=== PATIENT | female | born 1945 | race Caucasian/White ===

== ENCOUNTER → 2017-06-15 | Outpatient (CLI) | payer MEDICARE, OTHER ==
[~2017-06-15] MED LIST: FLUT16SP2 INH
== END | disposition home or self-care (01) ==
LOC: CFH 10:30
PROVIDERS: ATTEND Family Medicine
DX: Z12.31 Encounter for screening mammogram for malignant neoplasm of breast (principal)
CPT/HCPCS: G0202

== ENCOUNTER → 2017-06-24 | Outpatient (CLI) | payer MEDICARE, OTHER | END | disposition home or self-care (01) | LOC: CFH 10:42 | PROVIDERS: ATTEND Family Medicine | DX: Z13.820 Encounter for screening for osteoporosis (principal); M81.0 Age-related osteoporosis without current pathological fracture; M85.88 Other specified disorders of bone density and structure, other site | CPT/HCPCS: 77080 ==

== ENCOUNTER 2019-05-30 12:38 | Emergency (ER) | payer MEDICARE, OTHER ==
[~2019-05-30] VITALS: Ht 165.1 cm; Wt 86.0 kg
--- NOTE | 2019-05-30 13:05 | NUR ---
FIRST CONTACT WITH PT: Pt resting on vale. DEE. Pt states, "I am not digesting my food well. I have been burping alot. It feels like there is a lot of trapped gas. I have a lot of food allergies. I cook all my own food. I havn't changed my diet. I have rheumatoid arthritis so I eat alot of greens for it." Pt denies n/v/d, cp, sob, trauma, or syncope. CMS intact. Bedrail up for safety measures. Call light within reach. NIBP cuff and pulse ox connected to pt. No other needs requested.
[2019-05-30] MEDS ORDERED: supplements (13:09)
[2019-05-30 13:29] LABS: BASOPHILS # (AUTO) 0.02 x10^3/uL (0-0.1); BASOPHILS % (AUTO) 0 % (0-1); EOSINOPHILS % (AUTO) 1 % (1-7); LYMPHOCYTES # (AUTO) 0.98 x10^3/uL (1-3.4); LYMPHOCYTES % (AUTO) 10 % (22-44); MD NO; MEAN CORPUSCULAR HEMOGLOBIN 32.1 pg (27.0-34.8); MEAN CORPUSCULAR VOLUME 97.4 fL (80-100); MEAN PLATELET VOLUME 6.9 fL (7.4-10.4); MONOCYTES # (AUTO) 0.66 x10^3/uL (0.2-0.8); MONOCYTES % (AUTO) 7 % (2-9); NEUTROPHILS # (AUTO) 7.77 x10^3/uL (1.8-6.8); NEUTROPHILS % (AUTO) 82 % (42-75); PLATELET COUNT 279 x10^3/uL (130-400); RED BLOOD COUNT 4.38 x10^6/uL (3.82-5.3); RED CELL DISTRIBUTION WIDTH 12.9 % (9.6-15.2)
[2019-05-30 13:42] LABS: ALANINE AMINOTRANSFERASE 37 U/L (12-78); ALBUMIN 3.3 g/dL (3.4-5.0); ANION GAP 6 mmol/L (5-15); CALCIUM 9.1 mg/dL (8.5-10.1); CHLORIDE 111 mmol/L (98-107); CREATININE 0.71 mg/dL (0.55-1.02)
[2019-05-30 13:44] LABS: ALKALINE PHOSPHATASE 84 U/L (45-117); BILIRUBIN,TOTAL 1.3 mg/dL (0.2-1.0); TOTAL PROTEIN 7.3 g/dL (6.4-8.2)
--- NOTE | 2019-05-30 14:22 | NUR ---
BREAK RN-PT AMBULATED TO BR WITH STEADY GAIT. URINE SAMPLE COLLECTED AND SENT TO LAB. NO OTHER NEEDS AT THIS TIME
[2019-05-30 14:49] VITALS: BP 32/65
[2019-05-30 15:12] LABS: CULTURE INDICATED? YES; MICROSCOPIC INDICATED
--- NOTE | 2019-05-30 16:12 | NUR ---
Patient given discharge instructions and they have confirmed that they understand the instructions. Patient ambulatory with steady gait. Pt refusing vital signs taken at discharge. Pt left with all personal belongings and d/c paperwork. Pt encouraged to return to ED if symptoms worsen or change.
== END 2019-05-30 16:14 | disposition home or self-care (01) ==
LOC: ED 16:00
DX: R10.13 Epigastric pain (principal); R10.32 Left lower quadrant pain; I10 Essential (primary) hypertension
CPT/HCPCS: 36415; 74021; 80053; 81001; 83690; 85025; 87086; 99284

== ENCOUNTER 2019-07-07 08:09 | Outpatient (CLI) | payer MEDICARE, OTHER | END 2019-07-07 23:59 | disposition home or self-care (01) | LOC: CFH 08:09 | PROVIDERS: ATTEND Family Medicine | DX: Z12.31 Encounter for screening mammogram for malignant neoplasm of breast (principal); M81.0 Age-related osteoporosis without current pathological fracture; N95.1 Menopausal and female climacteric states | CPT/HCPCS: 77080; 77067 ==

== ENCOUNTER 2020-09-26 13:38 | Emergency (ER) | payer MEDICARE, OTHER ==
[~2020-09-26] VITALS: Ht 165.1 cm; Wt 86.4 kg
[~2020-09-26 13:38] MED LIST changes: +supplements
[2020-09-26 15:11] LABS: BASOPHILS % (AUTO) 0 % (0-1); EOSINOPHILS % (AUTO) 0 % (1-7); LYMPHOCYTES % (AUTO) 16 % (22-44); MEAN CORPUSCULAR HEMOGLOBIN 31.5 pg (27.0-34.8); MEAN CORPUSCULAR HGB CONC 33.2 g/dL (32.4-35.8); MEAN PLATELET VOLUME 7.2 fL (7.4-10.4); MONOCYTES % (AUTO) 10 % (2-9); NEUTROPHILS % (AUTO) 74 % (42-75); PLATELET COUNT 207 x10^3/uL (130-400); RED BLOOD COUNT 4.22 x10^6/uL (3.82-5.3); RED CELL DISTRIBUTION WIDTH 13.8 % (9.6-15.2)
[2020-09-26 15:15] LABS: MD NO
[2020-09-26 15:21] LABS: ALANINE AMINOTRANSFERASE 36 U/L (12-78); ALBUMIN 3.2 g/dL (3.4-5.0); ANION GAP 6 mmol/L (5-15); CALCIUM 8.9 mg/dL (8.5-10.1); CHLORIDE 104 mmol/L (98-107); CREATININE 1.54 mg/dL (0.55-1.02)
[2020-09-26] MEDS ORDERED: KETOROLAC 30 MG/1 ML ONE (15:23)
[2020-09-26] MEDS ORDERED: CEFTRIAXONE PMX 1GM/50ML 50 ML ONE (15:23)
[2020-09-26 15:27] LABS: ALKALINE PHOSPHATASE 72 U/L (45-117); BILIRUBIN,TOTAL 0.6 mg/dL (0.2-1.0); TOTAL PROTEIN 7.4 g/dL (6.4-8.2)
[2020-09-26] MEDS ORDERED: KETOROLAC 30 MG/1 ML IVPush ONE (15:30)
[2020-09-26] MEDS ORDERED: SODIUM CHLORIDE FLUSH 10ML SYR IVF ONE (15:30)
[2020-09-26] MEDS ORDERED: CEFTRIAXONE PMX 1GM/50ML 50 ML IVPB ONE (15:30)
[2020-09-26] MEDS ORDERED: AZITHROMYCIN 500 MG in SODIUM CHLORIDE 0.9% 250 ML IV ONE (15:30)
[2020-09-26] MEDS ORDERED: vit e PO (15:33)
[2020-09-26] MEDS ORDERED: allergy pill PO (15:33)
[2020-09-26] MEDS ORDERED: OMEP40CA42 PO (15:33)
--- NOTE | 2020-09-26 15:39 | NUR ---
IV PLACED/BC X 1 DRAWN. VERBAL ORDER PLACED FOR BC X 2. PT MEDICATED FOR "ALL OVER" PAIN PER ERP ORDER. HOLDING ON ANTIBIOTICS UNTIL 2ND BC DRAWN. CALL TO LAB TO NOTIFY. WARM BLANKET PROVIDED. CALL LIGHT WITHIN REACH. VSS/UPDATED IN COMPUTER.
--- NOTE | 2020-09-26 16:58 | NUR ---
PT OFFERED ADMIT OR GO HOME, PT STATES SHE "NEEDS TO GO HOME". PT PROVIDED MEAL TRAY AND READY FOR DISCHARGE.
[2020-09-26 17:11] VITALS: BP 122/62
== END 2020-09-26 17:15 | disposition home or self-care (01) ==
LOC: ED 14:41
DX: U07.1 COVID-19 (principal); J15.9 Unspecified bacterial pneumonia; R09.02 Hypoxemia; R94.31 Abnormal electrocardiogram [ECG] [EKG]; I10 Essential (primary) hypertension
CPT/HCPCS: 36415; 71045; 80053; 83605; 83615; 85025; 86140; 87040; 87635; 93005; 96365; 96375; 99285; J0696; J1885

== ENCOUNTER 2020-09-28 12:20 | Inpatient (IN) | payer MEDICARE, OTHER ==
[~2020-09-28] VITALS: Ht 165.1 cm; Wt 91.6 kg
[~2020-09-28 12:20] MED LIST changes: +OMEP40CA42 PO; +allergy pill PO; +vit e PO
[2020-09-28] MEDS ORDERED: SODIUM CHLORIDE 0.9% 1,000ML IVBOLUS ONE (13:00)
[2020-09-28] MEDS ORDERED: SODIUM CHLORIDE FLUSH 10ML SYR IVF ONE (13:00)
[2020-09-28] MEDS: PLEASE ENTER HEIGHT AND WEIGHT MC SCH (13:00)
--- NOTE | 2020-09-28 13:05 | NUR ---
iv access obtained. first set of blood cultures drawn off iv start.
[2020-09-28 13:15] LABS: ALANINE AMINOTRANSFERASE 32 U/L (12-78); ALBUMIN 2.9 g/dL (3.4-5.0); ANION GAP 8 mmol/L (5-15); CALCIUM 8.7 mg/dL (8.5-10.1); CHLORIDE 101 mmol/L (98-107); CREATININE 1.04 mg/dL (0.55-1.02)
[2020-09-28 13:17] LABS: ALKALINE PHOSPHATASE 64 U/L (45-117); BILIRUBIN,TOTAL 0.5 mg/dL (0.2-1.0); TOTAL PROTEIN 7.5 g/dL (6.4-8.2)
[2020-09-28 13:20] LABS: BASOPHILS % (AUTO) 0 % (0-1); EOSINOPHILS % (AUTO) 0 % (1-7); LYMPHOCYTES % (AUTO) 17 % (22-44); MEAN PLATELET VOLUME 7.6 fL (7.4-10.4); MONOCYTES % (AUTO) 12 % (2-9); NEUTROPHILS % (AUTO) 71 % (42-75); PLATELET COUNT 222 x10^3/uL (130-400); RED BLOOD COUNT 4.09 x10^6/uL (3.82-5.3); RED CELL DISTRIBUTION WIDTH 13.7 % (9.6-15.2)
[2020-09-28] MEDS ORDERED: CEFTRIAXONE PMX 1GM/50ML 50 ML ONE (13:20)
[2020-09-28 13:22] LABS: MD NO
[2020-09-28] MEDS ORDERED: CEFTRIAXONE PMX 1GM/50ML 50 ML IVPB ONE (13:30)
--- NOTE | 2020-09-28 14:23 | NUR ---
[facility] [phone]
--- NOTE | 2020-09-28 15:58 | NUR ---
Pt got up to use bedside commode. Took oxygen off. Pt o2 sat dropped to 83% with ambulation. Placed back on 2L 95%. notified.
[2020-09-28] MEDS ORDERED: OMNIPAQUE 350 MG/ML, 100ML BOTTLE ONE (16:50)
[2020-09-28] MEDS ORDERED: DOCUSATE 100 MG CAPSULE PO PRN (17:00)
[2020-09-28] MEDS ORDERED: ONDANSETRON ODT 4 MG PO PRN (17:00)
[2020-09-28] MEDS ORDERED: ONDANSETRON 2MG/ML, 2ML IVPush PRN (17:00)
[2020-09-28] MEDS ORDERED: ACETAMINOPHEN 325 MG TABLET PO PRN (17:00)
[2020-09-28] MEDS: LACTATED RINGERS 1,000 ML IV SCH (17:00)
[2020-09-28] MEDS: DOXYCYCLINE 100 MG in DEXTROSE 5% 250 ML IV SCH (17:30)
[2020-09-28 17:54] LABS: HCT (SEDRATE) 38.5 % (34.6-47.8)
[2020-09-28] MEDS ORDERED: REMDESIVIR 200 MG in SODIUM CHLORIDE 0.9% 250 ML IVPB ONE (18:30)
--- NOTE | 2020-09-28 18:55 | NUR ---
Report received from ARNOL Charles. This RN to assume care.
[2020-09-28] MEDS ORDERED: ASPIRIN 325 MG TABLET ONE (19:49)
[2020-09-28] MEDS ORDERED: FAMOTIDINE 20 MG TABLET ONE (19:50)
[2020-09-28] MEDS ORDERED: ASPIRIN 325 MG TABLET PO PRN (20:30)
[2020-09-28] MEDS: FAMOTIDINE 20 MG TABLET PO SCH (21:00)
--- NOTE | 2020-09-28 22:00 | NUR ---
Assisted patient to bedside commode.
--- NOTE | 2020-09-28 22:28 | NUR ---
Report given to ARNOL King. Patient to be transferred to room 495.
[2020-09-29 00:01] VITALS: BP 119/71
[2020-09-29] MEDS: ASCORBIC ACID 500 MG TABLET PO SCH ×3 (00:53→17:29)
[2020-09-29] MEDS: LACTATED RINGERS 1,000 ML IV SCH ×5 (00:53→21:16)
[2020-09-29] MEDS: PLEASE ENTER HEIGHT AND WEIGHT MC SCH ×2 (00:54→05:00)
[2020-09-29] MEDS: DOXYCYCLINE 100 MG in DEXTROSE 5% 250 ML IV SCH ×2 (06:08→17:29)
[2020-09-29 07:20] LABS: BASOPHILS % (AUTO) 0 % (0-1); EOSINOPHILS % (AUTO) 0 % (1-7); LYMPHOCYTES % (AUTO) 15 % (22-44); MEAN CORPUSCULAR HEMOGLOBIN 31.1 pg (27.0-34.8); MEAN CORPUSCULAR HGB CONC 33.1 g/dL (32.4-35.8); MEAN PLATELET VOLUME 7.5 fL (7.4-10.4); MONOCYTES % (AUTO) 8 % (2-9); NEUTROPHILS % (AUTO) 77 % (42-75); PLATELET COUNT 196 x10^3/uL (130-400); RED BLOOD COUNT 3.35 x10^6/uL (3.82-5.3); RED CELL DISTRIBUTION WIDTH 13.7 % (9.6-15.2)
[2020-09-29 07:25] LABS: ALBUMIN 2.1 g/dL (3.4-5.0); ANION GAP 5 mmol/L (5-15); CALCIUM 7.7 mg/dL (8.5-10.1); CHLORIDE 105 mmol/L (98-107)
[2020-09-29 07:29] LABS: MD NO
[2020-09-29 07:31] LABS: ALANINE AMINOTRANSFERASE 29 U/L (12-78); ALKALINE PHOSPHATASE 53 U/L (45-117); BILIRUBIN,TOTAL 0.3 mg/dL (0.2-1.0); CREATININE 0.76 mg/dL (0.55-1.02); TOTAL PROTEIN 5.9 g/dL (6.4-8.2)
[2020-09-29] MEDS: THIAMINE 100MG TABLET PO SCH (08:34)
[2020-09-29] MEDS: ZINC SULFATE 220 MG CAPSULE PO SCH (08:34)
[2020-09-29] MEDS: CHOLECALCIFEROL 5,000u TAB PO SCH (08:35)
[2020-09-29] MEDS: FAMOTIDINE 20 MG TABLET PO SCH ×2 (08:35→21:16)
[2020-09-29] MEDS: DEXAMETHASONE 4 MG/ML, 1ML IVPush SCH (08:36)
[2020-09-29] MEDS: OMEPRAZOLE 20 MG CAPSULE.DR PO SCH (10:37)
[2020-09-29 20:26] VITALS: BP 113/67
[2020-09-29] MEDS: REMDESIVIR 100 MG in SODIUM CHLORIDE 0.9% 250 ML IVPB SCH (21:17)
[2020-09-30 01:07] VITALS: BP 118/69
[2020-09-30] MEDS: OMEPRAZOLE 20 MG CAPSULE.DR PO SCH (05:25)
[2020-09-30] MEDS: DOXYCYCLINE 100 MG in DEXTROSE 5% 250 ML IV SCH ×2 (05:25→17:36)
[2020-09-30] MEDS: LACTATED RINGERS 1,000 ML IV SCH (05:26)
[2020-09-30 06:18] VITALS: BP 133/82
[2020-09-30 06:41] LABS: ALANINE AMINOTRANSFERASE 34 U/L (12-78); ALBUMIN 2.1 g/dL (3.4-5.0); ANION GAP 6 mmol/L (5-15); CALCIUM 8.2 mg/dL (8.5-10.1); CHLORIDE 112 mmol/L (98-107); CREATININE 0.66 mg/dL (0.55-1.02)
[2020-09-30 06:43] LABS: ALKALINE PHOSPHATASE 52 U/L (45-117); BILIRUBIN,TOTAL 0.6 mg/dL (0.2-1.0)
[2020-09-30] MEDS: ENOXAPARIN 40 MG/0.4 ML SQ SCH (08:00)
[2020-09-30] MEDS: CHOLECALCIFEROL 5,000u TAB PO SCH (09:00)
[2020-09-30] MEDS: DEXAMETHASONE 4 MG/ML, 1ML IVPush SCH (09:16)
[2020-09-30] MEDS: ASCORBIC ACID 500 MG TABLET PO SCH ×2 (09:16→17:36)
[2020-09-30] MEDS: ZINC SULFATE 220 MG CAPSULE PO SCH (09:17)
[2020-09-30] MEDS: THIAMINE 100MG TABLET PO SCH (09:17)
[2020-09-30] MEDS: FAMOTIDINE 20 MG TABLET PO SCH ×2 (09:18→21:12)
[2020-09-30] MEDS ORDERED: CALC-56 PO (11:03)
[2020-09-30] MEDS ORDERED: CETI10TA18 PO (11:03)
[2020-09-30] MEDS: [UNRECOGNIZED DRUG - REMARK] PO SCH (11:30)
[2020-09-30] MEDS: VIT E PO SCH (11:30)
[2020-09-30] MEDS ORDERED: GUAIFENESIN/DM 200-20MG, 10ML UDC PO PRN (11:30)
[2020-09-30 12:05] VITALS: BP 133/81
[2020-09-30] MEDS: CETIRIZINE 10 MG TABLET PO SCH (12:38)
[2020-09-30] MEDS: BENZONATATE 100 MG CAPSULE PO SCH ×3 (12:39→21:12)
[2020-09-30 20:25] VITALS: BP 149/83
[2020-09-30] MEDS: REMDESIVIR 100 MG in SODIUM CHLORIDE 0.9% 250 ML IVPB SCH (21:12)
[2020-10-01 00:30] VITALS: BP 112/74
[2020-10-01] MEDS: DOXYCYCLINE 100 MG in DEXTROSE 5% 250 ML IV SCH ×2 (05:27→16:36)
[2020-10-01 05:54] LABS: INTERNATIONAL NORMALIZED RATIO 1.01 (0.93-1.1); PROTHROMBIN TIME 10.7 Seconds (9.6-11.5)
[2020-10-01 05:59] LABS: CHLORIDE 113 mmol/L (98-107)
[2020-10-01 06:07] LABS: ALANINE AMINOTRANSFERASE 35 U/L (12-78); ALBUMIN 2.3 g/dL (3.4-5.0); ALKALINE PHOSPHATASE 57 U/L (45-117); ANION GAP 5 mmol/L (5-15); BILIRUBIN,TOTAL 0.3 mg/dL (0.2-1.0); CALCIUM 8.6 mg/dL (8.5-10.1); CREATININE 0.67 mg/dL (0.55-1.02); TOTAL PROTEIN 6.2 g/dL (6.4-8.2)
[2020-10-01 06:30] VITALS: BP 138/88
[2020-10-01] MEDS: ENOXAPARIN 40 MG/0.4 ML SQ SCH (08:00)
[2020-10-01] MEDS: VIT E PO SCH (09:00)
[2020-10-01] MEDS: [UNRECOGNIZED DRUG - REMARK] PO SCH (09:00)
[2020-10-01] MEDS: DEXAMETHASONE 4 MG/ML, 1ML IVPush SCH (09:00)
[2020-10-01] MEDS: ASCORBIC ACID 500 MG TABLET PO SCH ×3 (09:49→16:42)
[2020-10-01] MEDS: FAMOTIDINE 20 MG TABLET PO SCH (09:52)
[2020-10-01] MEDS: BENZONATATE 100 MG CAPSULE PO SCH ×3 (09:53→21:23)
[2020-10-01] MEDS: OMEPRAZOLE 20 MG CAPSULE.DR PO SCH (09:53)
[2020-10-01] MEDS: CETIRIZINE 10 MG TABLET PO SCH (09:53)
[2020-10-01] MEDS: CHOLECALCIFEROL 5,000u TAB PO SCH (10:08)
[2020-10-01] MEDS: THIAMINE 100MG TABLET PO SCH (10:08)
[2020-10-01] MEDS: ZINC SULFATE 220 MG CAPSULE PO SCH (10:08)
[2020-10-01 12:53] VITALS: BP 130/76
[2020-10-01 18:35] VITALS: BP 126/62
[2020-10-01] MEDS: REMDESIVIR 100 MG in SODIUM CHLORIDE 0.9% 250 ML IVPB SCH (21:23)
[2020-10-02] VITALS: BP 139/70
[2020-10-02 04:57] LABS: ALBUMIN 2.5 g/dL (3.4-5.0); ANION GAP 6 mmol/L (5-15); CALCIUM 8.3 mg/dL (8.5-10.1); CHLORIDE 105 mmol/L (98-107)
[2020-10-02 05:01] LABS: ALANINE AMINOTRANSFERASE 36 U/L (12-78); ALKALINE PHOSPHATASE 67 U/L (45-117); BILIRUBIN,TOTAL 0.6 mg/dL (0.2-1.0); CREATININE 0.69 mg/dL (0.55-1.02); TOTAL PROTEIN 6.7 g/dL (6.4-8.2)
[2020-10-02] MEDS: DOXYCYCLINE 100 MG in DEXTROSE 5% 250 ML IV SCH ×2 (05:23→19:33)
[2020-10-02 07:25] VITALS: BP 121/76
[2020-10-02] MEDS: ENOXAPARIN 40 MG/0.4 ML SQ SCH ×2 (08:00→10:01)
[2020-10-02] MEDS: ASCORBIC ACID 500 MG TABLET PO SCH ×3 (08:00→16:12)
[2020-10-02] MEDS: VIT E PO SCH (09:00)
[2020-10-02] MEDS: [UNRECOGNIZED DRUG - REMARK] PO SCH (09:00)
[2020-10-02] MEDS: OMEPRAZOLE 20 MG CAPSULE.DR PO SCH (09:58)
[2020-10-02] MEDS: CETIRIZINE 10 MG TABLET PO SCH (09:58)
[2020-10-02] MEDS: DEXAMETHASONE 4 MG/ML, 1ML IVPush SCH (09:58)
[2020-10-02] MEDS: THIAMINE 100MG TABLET PO SCH (09:58)
[2020-10-02] MEDS: FAMOTIDINE 20 MG TABLET PO SCH (09:58)
[2020-10-02] MEDS: ZINC SULFATE 220 MG CAPSULE PO SCH (09:58)
[2020-10-02] MEDS: BENZONATATE 100 MG CAPSULE PO SCH ×3 (09:59→21:20)
[2020-10-02] MEDS: CHOLECALCIFEROL 5,000u TAB PO SCH (10:01)
[2020-10-02 12:37] VITALS: BP 130/75
[2020-10-02 16:10] VITALS: BP 143/83
[2020-10-02] MEDS: REMDESIVIR 100 MG in SODIUM CHLORIDE 0.9% 250 ML IVPB SCH (16:12)
[2020-10-02 18:22] VITALS: BP 122/81
[2020-10-03 01:33] VITALS: BP 147/68
[2020-10-03 06:17] LABS: ALBUMIN 2.3 g/dL (3.4-5.0); ANION GAP 4 mmol/L (5-15); CALCIUM 8.7 mg/dL (8.5-10.1); CHLORIDE 109 mmol/L (98-107)
[2020-10-03 06:20] LABS: ALANINE AMINOTRANSFERASE 38 U/L (12-78); ALKALINE PHOSPHATASE 67 U/L (45-117); BILIRUBIN,TOTAL 0.6 mg/dL (0.2-1.0); CREATININE 0.64 mg/dL (0.55-1.02); TOTAL PROTEIN 6.5 g/dL (6.4-8.2)
[2020-10-03] MEDS: ENOXAPARIN 40 MG/0.4 ML SQ SCH (08:00)
[2020-10-03] MEDS: ASCORBIC ACID 500 MG TABLET PO SCH ×2 (08:00→15:04)
[2020-10-03] MEDS: [UNRECOGNIZED DRUG - REMARK] PO SCH (08:07)
[2020-10-03] MEDS: VIT E PO SCH (08:07)
[2020-10-03 08:30] VITALS: BP 131/69
[2020-10-03] MEDS: FAMOTIDINE 20 MG TABLET PO SCH (08:31)
[2020-10-03] MEDS: THIAMINE 100MG TABLET PO SCH (08:31)
[2020-10-03] MEDS: DEXAMETHASONE 4 MG/ML, 1ML IVPush SCH (08:31)
[2020-10-03] MEDS: DOXYCYCLINE 100 MG in DEXTROSE 5% 250 ML IV SCH ×2 (08:31→21:48)
[2020-10-03] MEDS: OMEPRAZOLE 20 MG CAPSULE.DR PO SCH (08:32)
[2020-10-03] MEDS: CETIRIZINE 10 MG TABLET PO SCH (08:32)
[2020-10-03] MEDS: ZINC SULFATE 220 MG CAPSULE PO SCH (08:32)
[2020-10-03] MEDS: CHOLECALCIFEROL 5,000u TAB PO SCH (08:36)
[2020-10-03] MEDS: BENZONATATE 100 MG CAPSULE PO SCH ×3 (08:36→21:47)
[2020-10-03 12:30] VITALS: BP 128/81
[2020-10-03 15:01] VITALS: BP 131/74
[2020-10-03] MEDS: REMDESIVIR 100 MG in SODIUM CHLORIDE 0.9% 250 ML IVPB SCH (15:10)
[2020-10-03 15:29] VITALS: BP 125/75
[2020-10-03] MEDS ORDERED: SODIUM CHLORIDE NASAL SPRAY 45ML BOTTLE NAS PRN (16:30)
[2020-10-03 19:20] VITALS: BP 123/76
[2020-10-04 00:47] VITALS: BP 154/89
[2020-10-04 06:41] VITALS: BP 142/83
[2020-10-04] MEDS: ENOXAPARIN 40 MG/0.4 ML SQ SCH (07:29)
[2020-10-04] MEDS: [UNRECOGNIZED DRUG - REMARK] PO SCH (07:29)
[2020-10-04] MEDS: VIT E PO SCH (07:30)
[2020-10-04] MEDS: ASCORBIC ACID 500 MG TABLET PO SCH (07:30)
[2020-10-04] MEDS: CETIRIZINE 10 MG TABLET PO SCH (08:02)
[2020-10-04] MEDS: BENZONATATE 100 MG CAPSULE PO SCH (08:02)
[2020-10-04] MEDS: OMEPRAZOLE 20 MG CAPSULE.DR PO SCH (08:12)
[2020-10-04] MEDS: THIAMINE 100MG TABLET PO SCH (08:12)
[2020-10-04] MEDS: ZINC SULFATE 220 MG CAPSULE PO SCH (08:13)
[2020-10-04] MEDS: DOXYCYCLINE 100 MG in DEXTROSE 5% 250 ML IV SCH (08:13)
[2020-10-04] MEDS: DEXAMETHASONE 4 MG/ML, 1ML IVPush SCH (08:13)
[2020-10-04] MEDS: CHOLECALCIFEROL 5,000u TAB PO SCH (08:13)
[2020-10-04] MEDS: FAMOTIDINE 20 MG TABLET PO SCH (08:13)
[2020-10-04] MEDS ORDERED: BENZ-17 PO (11:32)
[2020-10-04] MEDS ORDERED: FLU VACC QS2020-21(6MOS UP)/PF 60MCG/0.5 ML SYR IM-VACC ONE (12:30)
== END 2020-10-04 15:15 | disposition home or self-care (01) | DRG 177 ==
LOC: ED 13:20 → EDIP 16:56 → 4EST 23:49
PROVIDERS: ADMIT Family Medicine; ATTEND Hospitalist
DX: U07.1 COVID-19 (principal); J12.89 Other viral pneumonia; J96.01 Acute respiratory failure with hypoxia; E11.9 Type 2 diabetes mellitus without complications; F43.20 Adjustment disorder, unspecified; I10 Essential (primary) hypertension; M06.9 Rheumatoid arthritis, unspecified; Z88.5 Allergy status to narcotic agent; Z88.6 Allergy status to analgesic agent; Z88.8 Allergy status to other drugs, medicaments and biological substances; Z91.018 Allergy to other foods; Z23 Encounter for immunization
CPT/HCPCS: 36415; 71045; 71275; 80053; 83605; 83615; 84145; 85014; 85018; 85025; 85049; 85379; 85610; 85651; 86140; 87040; 90686; 93005; 99285; G0378; J0696; J1100; J1650; J7060; Q9967; J7030; J7050; J7120

== ENCOUNTER → 2021-01-31 | Outpatient (CLI) | payer MEDICARE, OTHER ==
[~2021-01-31] MED LIST changes: +BENZ-17 PO; +CALC-56 PO; +CETI10TA18 PO
[2021-01-31 18:50] LABS: ALANINE AMINOTRANSFERASE 37 U/L (12-78); ALBUMIN 3.7 g/dL (3.4-5.0); ANION GAP 7 mmol/L (5-15); BASOPHILS % (AUTO) 1 % (0-1); BILIRUBIN, DIRECT 0.2 mg/dL (0.1-0.2); CHLORIDE 111 mmol/L (98-107); CREATININE 1.21 mg/dL (0.55-1.02); EOSINOPHILS % (AUTO) 2 % (1-7); LYMPHOCYTES % (AUTO) 17 % (22-44); MEAN CORPUSCULAR HEMOGLOBIN 30.9 pg (27.0-34.8); MEAN CORPUSCULAR HGB CONC 33.3 g/dL (32.4-35.8); MEAN PLATELET VOLUME 6.9 fL (7.4-10.4); MONOCYTES % (AUTO) 7 % (2-9); NEUTROPHILS % (AUTO) 73 % (42-75); PLATELET COUNT 377 x10^3/uL (130-400); RED BLOOD COUNT 4.77 x10^6/uL (3.82-5.3); RED CELL DISTRIBUTION WIDTH 13.9 % (9.6-15.2)
[2021-01-31 18:55] LABS: MD NO
[2021-01-31 19:15] LABS: ALKALINE PHOSPHATASE 97 U/L (45-117); BILIRUBIN,TOTAL 0.7 mg/dL (0.2-1.0); CHOL/HDL RATIO 2.5; CHOLESTEROL, TOTAL 172 mg/dL (140-239); HDL CHOL % 40 % (28-40); HDL CHOLESTEROL (DIRECT) 68 mg/dL (40-60); LDL CHOLESTEROL,CALCULATED 85 mg/dL (54-169); LDL/HDL RATIO 1.3 (0.5-3.0); TRIGLYCERIDES 96 mg/dL (50-200); VLDL CHOLESTEROL 19 mg/dL (0-25)
[2021-01-31 19:27] LABS: FOLATE LEVEL > 20.0 ng/mL (3.1-17.5)
== END | disposition home or self-care (01) ==
LOC: LAB 17:54
PROVIDERS: ATTEND Family Medicine
DX: Z13.228 Encounter for screening for other metabolic disorders (principal); Z13.0 Encounter for screening for diseases of the blood and blood-forming organs and certain disorders involving the immune mechanism; R73.09 Other abnormal glucose; N18.30 Chronic kidney disease, stage 3 unspecified; K44.9 Diaphragmatic hernia without obstruction or gangrene; K75.81 Nonalcoholic steatohepatitis (NASH); K90.41 Non-celiac gluten sensitivity; K30 Functional dyspepsia; R73.02 Impaired glucose tolerance (oral); R14.0 Abdominal distension (gaseous); M06.9 Rheumatoid arthritis, unspecified; R74.01 Elevation of levels of liver transaminase levels
CPT/HCPCS: 36415; 80053; 80061; 82248; 82607; 82746; 83036; 83735; 85025